=== PATIENT | female | born 1945 | race Caucasian/White ===

== ENCOUNTER → 2016-12-23 | Outpatient (CLI) | payer MEDICARE, OTHER ==
[2016-12-23 09:32] LABS: ABSOLUTE EOSINOPHILS # (AUTO) 0.2 10^3/uL (0.0-0.6); ABSOLUTE LYMPHOCYTES (AUTO) 1.3 10^3/uL (0.5-4.7); ABSOLUTE MONOCYTES (AUTO) 0.6 10^3/uL (0.1-1.4); ABSOLUTE NEUT (AUTO) 5.6 10^3/uL (1.7-8.2); BASOPHILS % (AUTO) 0.6 % (0-2); EOSINOPHILS % (AUTO) 2.5 % (0-6); HEMATOCRIT 39.9 % (36.0-47.0); HEMOGLOBIN 12.8 g/dL (12.0-15.5); HGB HCT DIFFERENCE -1.5; LYMPHOCYTES % (AUTO) 16.8 % (13-45); MEAN CORPUSCULAR HEMOGLOBIN 30.4 pg (27.0-33.4); MEAN CORPUSCULAR HGB CONC 32.1 g/dL (32.0-36.0); MEAN CORPUSCULAR VOLUME 95 fl (80-97); MONOCYTES % (AUTO) 7.1 % (3-13); RED BLOOD COUNT 4.21 10^6/uL (3.72-5.28); RED CELL DISTRIBUTION WIDTH 14.6 % (11.5-14.0); WHITE BLOOD COUNT 7.7 10^3/uL (4.0-10.5)
[2016-12-23 09:57] LABS: ALANINE AMINOTRANSFERASE 32 U/L (9-52); ALBUMIN 3.8 g/dL (3.5-5.0); ALKALINE PHOSPHATASE 81 U/L (38-126); ANION GAP 10 (5-19); ASPARTATE AMINO TRANSFERASE 22 U/L (14-36); BILIRUBIN,DIRECT 0.3 mg/dL (0.0-0.4); BILIRUBIN,TOTAL 0.4 mg/dL (0.2-1.3); BLOOD UREA NITROGEN 24 mg/dL (7-20); CALCIUM 9.6 mg/dL (8.4-10.2); CARBON DIOXIDE 27 mmol/L (22-30); CHLORIDE 107 mmol/L (98-107); CHOLESTEROL 202.25 mg/dL (0-200); CREATININE RESULT 0.79 mg/dL (0.52-1.25); Direct HDL 86 mg/dL (>40); GLUCOSE 82 mg/dL (75-110); POTASSIUM 4.6 mmol/L (3.6-5.0); SODIUM 144.3 mmol/L (137-145); TOTAL PROTEIN 6.7 g/dL (6.3-8.2); TRIGLYCERIDES 70 mg/dL (<150)
[2016-12-23 10:08] LABS: DIRECT LDL 79 mg/dL (<100)
== END ==
LOC: OD 08:32
PROVIDERS: ATTEND Family Medicine Geriatric Medicine
DX: I10 Essential (primary) hypertension (principal); E78.5 Hyperlipidemia, unspecified; M81.0 Age-related osteoporosis without current pathological fracture; Z79.899 Other long term (current) drug therapy; E78.00 Pure hypercholesterolemia, unspecified; K21.9 Gastro-esophageal reflux disease without esophagitis; G25.81 Restless legs syndrome
CPT/HCPCS: 36415; 80053; 80061; 84443; 85025

== ENCOUNTER → 2017-04-13 | Outpatient (CLI) | payer MEDICARE, OTHER ==
[2017-04-13 11:03] LABS: CHOLESTEROL 202.87 mg/dL (0-200); Direct HDL 87 mg/dL (>40); TRIGLYCERIDES 91 mg/dL (<150)
[2017-04-13 11:13] LABS: DIRECT LDL 91 mg/dL (<100)
== END ==
LOC: OD 09:55
PROVIDERS: ATTEND Family Medicine Geriatric Medicine
DX: E78.5 Hyperlipidemia, unspecified (principal); Z79.899 Other long term (current) drug therapy
CPT/HCPCS: 36415; 80061

== ENCOUNTER → 2017-08-24 | Outpatient (CLI) | payer MEDICARE ==
[2017-08-24 10:29] LABS: ABSOLUTE EOSINOPHILS # (AUTO) 0.1 10^3/uL (0.0-0.6); ABSOLUTE LYMPHOCYTES (AUTO) 1.3 10^3/uL (0.5-4.7); ABSOLUTE MONOCYTES (AUTO) 0.5 10^3/uL (0.1-1.4); ABSOLUTE NEUT (AUTO) 3.5 10^3/uL (1.7-8.2); BASOPHILS % (AUTO) 0.8 % (0-2); EOSINOPHILS % (AUTO) 2.6 % (0-6); HEMATOCRIT 41.8 % (36.0-47.0); LYMPHOCYTES % (AUTO) 23.9 % (13-45); MEAN CORPUSCULAR HGB CONC 33.5 g/dL (32.0-36.0); MEAN CORPUSCULAR VOLUME 93 fl (80-97); MONOCYTES % (AUTO) 8.5 % (3-13); PLATELET COUNT 241 10^3/uL (150-450); RED BLOOD COUNT 4.52 10^6/uL (3.72-5.28); RED CELL DISTRIBUTION WIDTH 14.3 % (11.5-14.0); SEGMENTED NEUTROPHILS % (AUTO) 64.2 % (42-78); TOTAL CELLS COUNTED % (AUTO) 100 %; WHITE BLOOD COUNT 5.5 10^3/uL (4.0-10.5)
[2017-08-24 10:50] LABS: BLOOD UREA NITROGEN 18 mg/dL (7-20); CALCIUM 9.9 mg/dL (8.4-10.2); CARBON DIOXIDE 32 mmol/L (22-30); CHLORIDE 105 mmol/L (98-107); GLUCOSE 89 mg/dL (75-110); SODIUM 144.4 mmol/L (137-145)
[2017-08-24 10:51] LABS: ALANINE AMINOTRANSFERASE 28 U/L (9-52); ALBUMIN 4.4 g/dL (3.5-5.0); ALKALINE PHOSPHATASE 60 U/L (38-126); ANION GAP 7 (5-19); ASPARTATE AMINO TRANSFERASE 24 U/L (14-36); BILIRUBIN,DIRECT 0.2 mg/dL (0.0-0.4); BILIRUBIN,TOTAL 0.3 mg/dL (0.2-1.3); CHOLESTEROL 211.31 mg/dL (0-200); TOTAL PROTEIN 6.9 g/dL (6.3-8.2); TRIGLYCERIDES 77 mg/dL (<150)
[2017-08-24 11:07] LABS: DIRECT LDL 97 mg/dL (<100)
== END ==
LOC: OD 09:35
PROVIDERS: ATTEND Family Medicine Geriatric Medicine
DX: E78.5 Hyperlipidemia, unspecified (principal); I10 Essential (primary) hypertension; M19.90 Unspecified osteoarthritis, unspecified site; Z79.899 Other long term (current) drug therapy
CPT/HCPCS: 36415; 80053; 80061; 85025

== ENCOUNTER → 2017-12-08 | Outpatient (CLI) | payer MEDICARE ==
[2017-12-08 13:47] LABS: ANION GAP 12 (5-19); BLOOD UREA NITROGEN 27 mg/dL (7-20); CARBON DIOXIDE 32 mmol/L (22-30); CHLORIDE 99 mmol/L (98-107); GLUCOSE 91 mg/dL (75-110); POTASSIUM 5.3 mmol/L (3.6-5.0); SODIUM 142.5 mmol/L (137-145)
== END ==
LOC: OD 11:44
PROVIDERS: ATTEND Family Medicine Geriatric Medicine
DX: I10 Essential (primary) hypertension (principal)
CPT/HCPCS: 36415; 80048

== ENCOUNTER → 2017-12-14 | Outpatient (CLI) | payer MEDICARE | LOC: OD 08:17 | PROVIDERS: ATTEND Family Medicine Geriatric Medicine | DX: E87.6 Hypokalemia (principal) | CPT/HCPCS: 36415; 84132 ==

== ENCOUNTER → 2017-12-25 | Outpatient (CLI) | payer MEDICARE ==
[2017-12-25 09:35] LABS: ALANINE AMINOTRANSFERASE 33 U/L (9-52); ASPARTATE AMINO TRANSFERASE 22 U/L (14-36); CHOLESTEROL 142.66 mg/dL (0-200); TRIGLYCERIDES 49 mg/dL (<150)
[2017-12-25 10:01] LABS: DIRECT LDL 52 mg/dL (<100)
== END ==
LOC: OD 08:39
PROVIDERS: ATTEND Family Medicine Geriatric Medicine
DX: E78.5 Hyperlipidemia, unspecified (principal); Z79.899 Other long term (current) drug therapy
CPT/HCPCS: 36415; 80061; 84450; 84460

== ENCOUNTER → 2018-03-30 | Outpatient (CLI) | payer MEDICARE ==
[2018-03-30 09:50] LABS: ANION GAP 7 (5-19); BLOOD UREA NITROGEN 14 mg/dL (7-20); CARBON DIOXIDE 31 mmol/L (22-30); CHLORIDE 102 mmol/L (98-107); CHOLESTEROL 158.65 mg/dL (0-200); GLUCOSE 92 mg/dL (75-110); POTASSIUM 4.6 mmol/L (3.6-5.0); SODIUM 140.4 mmol/L (137-145); TRIGLYCERIDES 67 mg/dL (<150)
[2018-03-30 10:02] LABS: DIRECT LDL 50 mg/dL (<100)
== END ==
LOC: OD 08:36
PROVIDERS: ATTEND Internal Medicine
DX: E78.5 Hyperlipidemia, unspecified (principal); N19 Unspecified kidney failure
CPT/HCPCS: 36415; 80048; 80061

== ENCOUNTER 2018-06-11 02:56 | Inpatient (IN) | payer OTHER, MEDICARE ==
[2018-06-11] MEDS ORDERED: ACETAMINOPHEN 325 MG TABLET PO ONE (03:48)
--- NOTE | 2018-06-11 04:21 | RADIOLOGY REPORT (SQ) ---
EXAM DESCRIPTION: XR CHEST 1 VIEW COMPLETED DATE/TME: 06/11/2018 03:50 CLINICAL HISTORY: 72 years, Female, fever, cough COMPARISON: 10/20/2016 chest x-ray NUMBER OF VIEWS: 1 TECHNIQUE: Upright portable chest LIMITATIONS: None. FINDINGS: Heart size is normal. Osteopenia. Old right rib fractures. Scarring in the right lung base. Lungs are otherwise clear. No pneumothorax IMPRESSION: No acute cardiopulmonary process 2010 [employer]- All Rights Reserved
[2018-06-11 04:48] LABS: HEMATOCRIT 37.8 % (36.0-47.0); HEMOGLOBIN 12.8 g/dL (12.0-15.5); MEAN CORPUSCULAR HEMOGLOBIN 31.4 pg (27.0-33.4); MEAN CORPUSCULAR HGB CONC 33.9 g/dL (32.0-36.0); MEAN CORPUSCULAR VOLUME 93 fl (80-97); PLATELET COUNT 184 10^3/uL (150-450); RED BLOOD COUNT 4.08 10^6/uL (3.72-5.28); RED CELL DISTRIBUTION WIDTH 14.2 % (11.5-14.0); WHITE BLOOD COUNT 9.7 10^3/uL (4.0-10.5)
[2018-06-11 04:58] LABS: ALANINE AMINOTRANSFERASE 31 U/L (9-52); ALBUMIN 3.8 g/dL (3.5-5.0); ALKALINE PHOSPHATASE 81 U/L (38-126); ANION GAP 10 (5-19); ASPARTATE AMINO TRANSFERASE 40 U/L (14-36); BILIRUBIN,DIRECT 0.4 mg/dL (0.0-0.4); BILIRUBIN,TOTAL 0.6 mg/dL (0.2-1.3); BLOOD UREA NITROGEN 28 mg/dL (7-20); CALCIUM 9.4 mg/dL (8.4-10.2); CARBON DIOXIDE 27 mmol/L (22-30); CHLORIDE 105 mmol/L (98-107); CREATINE KINASE 123 U/L (30-135); GLUCOSE 99 mg/dL (75-110); POTASSIUM 3.9 mmol/L (3.6-5.0); SODIUM 142.3 mmol/L (137-145); TOTAL PROTEIN 6.3 g/dL (6.3-8.2)
[2018-06-11 05:09] LABS: CREATINE KINASE MB 1.15 ng/mL (<4.55)
[2018-06-11 05:12] LABS: TROPONIN I < 0.012 ng/mL
[2018-06-11 05:14] LABS: A TYPE INFLUENZA AG NEGATIVE (NEGATIVE); B INFLUENZA AG NEGATIVE (NEGATIVE)
[2018-06-11 05:15] LABS: ABSOLUTE LYMPHOCYTES# (MANUAL) 0.5 10^3/uL (0.5-4.7); ABSOLUTE MONOCYTES # (MANUAL) 0.3 10^3/uL (0.1-1.4); ABSOLUTE NEUTROPHILS# (MANUAL) 8.8 10^3/uL (1.7-8.2); BASOPHILS % (MANUAL) 0 % (0-2); EOSINOPHILS % (MANUAL) 1 % (0-6); LYMPHOCYTES % (MANUAL) 5 % (13-45); MONOCYTES % (MANUAL) 3 % (3-13); SEGMENTED NEUTROPHILS % (MAN) 91 % (42-78); TOTAL CELLS COUNTED 100
[2018-06-11 05:16] LABS: PLATELET COMMENT ADEQUATE; RBC MORPHOLOGY COMMENT NORMO-CYTIC/CHROMIC
[2018-06-11] MEDS ORDERED: IBUPROFEN 600 MG TABLET PO ONE (05:47)
[2018-06-11] MEDS ORDERED: NORMAL SALINE 1000 ML 1,000 ML IV ONE (06:15)
--- NOTE | 2018-06-11 06:59 | EKG REPORT ---
SEVERITY:- NORMAL ECG - SINUS RHYTHM : Confirmed by: Javan Pizarro 11-Jun-2018 06:58:42
[2018-06-11 07:07] LABS: APPEARANCE,URINE SLIGHTLY-CLOUDY; BILIRUBIN,URINE NEGATIVE (NEGATIVE); COLOR,URINE YELLOW; GLUCOSE, URINE NEGATIVE (NEGATIVE); KETONES,URINE NEGATIVE (NEGATIVE); LEUKOCYTE ESTERASE,URINE MODERATE (NEGATIVE); NITRITE,URINE POSITIVE (NEGATIVE); PROTEIN,URINE 30 mg/dL (NEGATIVE); UROBILINOGEN,URINE NEGATIVE mg/dL (<2.0)
[2018-06-11] MEDS ORDERED: CEFTRIAXONE INJ 1000 MG VIAL IV ONE (07:15)
--- NOTE | 2018-06-11 07:15 | ER Document Report ---
ED General - General Chief Complaint: Headache Stated Complaint: BODY ACHES Time Seen by Provider: 06/11/18 03:17 Mode of Arrival: Ambulatory Information source: Patient Notes: Patient is a 72-year-old female who presents to the emergency department with chief complaint of headache, fever and chills. Patient reports that her symptoms started at midnight, just 4 hours prior to arrival. TRAVEL OUTSIDE OF THE [place] IN LAST 30 DAYS: No - Related Data Allergies/Adverse Reactions: No Known Allergies Allergy (Verified 10/20/16 08:35) Past Medical History - Social History Smoking Status: Never Smoker Chew tobacco use (# tins/day): No Frequency of alcohol use: None Drug Abuse: None Family History: Reviewed & Not Pertinent Patient has suicidal ideation: No Patient has homicidal ideation: No - Past Medical History Cardiac Medical History: Reports: Hx Hypercholesterolemia, Hx Hypertension - MEDS Denies: Hx Coronary Artery Disease, Hx Heart Attack Pulmonary Medical History: Denies: Hx Asthma, Hx Bronchitis, Hx COPD, Hx Pneumonia, Hx Tuberculosis Neurological Medical History: Denies: Hx Cerebrovascular Accident, Hx Seizures Renal/ Medical History: Denies: Hx Peritoneal Dialysis GI Medical History: Denies: Hx Hepatitis, Hx Hiatal Hernia, Hx Ulcer Musculoskeletal Medical History: Reports Hx Arthritis Psychiatric Medical History: Reports: Hx Depression Infectious Medical History: Denies: Hx Hepatitis Past Surgical History: Reports: Hx Genitourinary Surgery - bladder tack, Hx Hysterectomy, Hx Orthopedic Surgery - left wrist surgery, Hx Tonsillectomy, Hx Urinary Tract Surgery - bladder sling. Denies: Hx Mastectomy, Hx Open Heart Surgery, Hx Pacemaker - Immunizations Hx Diphtheria, Pertussis, Tetanus Vaccination: No Hx Pneumococcal Vaccination: 07/24/07 Physical Exam - Vital signs Vitals: Temp Pulse Resp BP Pulse Ox 101.3 F H 95 18 149/80 H 96 06/11/18 03:05 06/11/18 03:05 06/11/18 03:05 06/11/18 03:05 06/11/18 03:05 - Notes Notes: PHYSICAL EXAMINATION: GENERAL: Well-appearing, well-nourished and in no acute distress. HEAD: Atraumatic, normocephalic. EYES: Pupils equal round and reactive to light, extraocular movements intact, conjunctiva are normal. ENT: Nares patent, oropharynx clear without exudates. Moist mucous membranes. NECK: Normal range of motion, supple without lymphadenopathy LUNGS: Breath sounds clear to auscultation bilaterally and equal. No wheezes rales or rhonchi. HEART: Regular rate and rhythm without murmurs ABDOMEN: Soft, nontender, nondistended abdomen. No guarding, no rebound. No masses appreciated. Female : No CVA tenderness Musculoskeletal: Normal range of motion, no pitting or edema. No cyanosis. NEUROLOGICAL: Cranial nerves grossly intact. Normal speech, normal gait. Normal sensory, motor exams PSYCH: Normal mood, normal affect. SKIN: Warm, Dry, normal turgor, no rashes or lesions noted. Course - Re-evaluation Re-evalutation: CBC and CMP are unremarkable. Initial lactate 1.1. Repeat lactate 0.7. Blood cultures were obtained and sent to lab. Patient has been normotensive and without tachycardia or hypoxia. Urinalysis with positive nitrates and moderate leukocyte esterase. Will give patient 1 g of Rocephin IV. Patient was initially febrile, fever has now resolved. Patient has had some episodes of hypotension. Her daughter states she has had this in the past. 06/11/18 08:42 Patient accepted by hospitalist. He would like her placed as an observation status on [facility]. - Vital Signs Vital signs: Temp Pulse Resp BP Pulse Ox 98.4 F 95 17 99/57 L 95 06/11/18 07:36 06/11/18 03:05 06/11/18 08:01 06/11/18 08:00 06/11/18 08:01 - Laboratory Result Diagrams: 06/11/18 04:40 06/11/18 04:25 Laboratory results interpreted by me: 06/11/18 06/11/18 06/11/18 03:18 04:25 04:40 RDW 14.2 H Seg Neuts % (Manual) 91 H Lymphocytes % (Manual) 5 L Abs Neuts (Manual) 8.8 H BUN 28 H Est GFR (Non-Af Amer) 52 L AST 40 H Urine Protein 30 H Urine Blood SMALL H Urine Nitrite POSITIVE H Ur Leukocyte Esterase MODERATE H Discharge - Discharge Clinical Impression: Urinary tract infection Qualifiers: Urinary tract infection type: site unspecified Hematuria presence: with hematuria Qualified Code(s): N39.0 - Urinary tract infection, site not specified Fever Qualifiers: Fever type: unspecified Qualified Code(s): R50.9 - Fever, unspecified Condition: Stable Disposition: HOME, SELF-CARE Prescriptions: Cephalexin [Cephalexin 500 MG Tablet] 1 tab PO QID #28 tablet Referrals: PRITESH MULLINS MD [Primary Care Provider] - Follow up as needed
[2018-06-11] MEDS ORDERED: CLONAZEPAM 0.5 MG PO PRN (13:12)
[2018-06-11] MEDS ORDERED: (PENDING PHARMACY ID) (Alendronate Sodium [Fosamax 70 Mg Tablet] 70 MG) PO SCH (13:15)
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
[2018-06-11] MEDS ORDERED: CLONAZEPAM 1 MG TABLET PO PRN (13:45)
--- NOTE | 2018-06-11 14:05 | RADIOLOGY REPORT (SQ) ---
EXAM DESCRIPTION: CT CERVICAL SPINE WITHOUT COMPLETED DATE/TIME: 06/11/2018 1:55 pm REASON FOR STUDY: neck pain COMPARISON: None. TECHNIQUE: Axial images acquired through the cervical spine without intravenous contrast. Images re viewed with lung, soft tissue and bone windows. Reconstructed coronal and sagittal MPR images review ed. Images stored on PACS. All CT scanners at this facility use dose modulation, iterative reconstruction, and/or weight based d osing when appropriate to reduce radiation dose to as low as reasonably achievable (ALARA). [facility]: Dose Right [facility]: CareDose [facility]: Dose Right [facility]: Teradose 4D [facility]: [employer] RADIATION DOSE: CT Rad equipment meets quality standard of care and radiation dose reduction techniq ues were employed. CTDIvol: 14.4 mGy. DLP: 300 mGy-cm. mGy. LIMITATIONS: None. FINDINGS: ALIGNMENT: Anatomic. MINERALIZATION: Normal. VERTEBRAL BODIES: No fractures or dislocation. DISCS: There is disc narrowing at C6-7 with marginal osteophytes. FACETS, LATERAL MASSES, POSTERIOR ELEMENTS: No fractures. No dislocation. No acute findings. HARDWARE: None in the spine. VISUALIZED RIBS: No fractures. LUNG APICES AND SOFT TISSUES: No significant or acute findings. OTHER: No other significant finding. IMPRESSION: Degenerative disc disease and spondylosis. No acute findings. TECHNICAL DOCUMENTATION: JOB ID: [id number] Quality ID # [id number]: Final reports with documentation of one or more dose reduction techniques (e.g., Au tomated exposure control, adjustment of the mA and/or kV according to patient size, use of iterative reconstruction technique) 2010 [employer]- All Rights Reserved Reading location - IP/workstation name: [email or web address]
--- NOTE | 2018-06-11 14:07 | RADIOLOGY REPORT (SQ) ---
EXAM DESCRIPTION: CT HEAD WITHOUT COMPLETED DATE/TIME: 06/11/2018 1:55 pm REASON FOR STUDY: headache COMPARISON: None. TECHNIQUE: Axial images acquired through the brain without intravenous contrast. Images reviewed wi th bone, brain and subdural windows. Additional sagittal and coronal reconstructions were generated. Images stored on PACS. All CT scanners at this facility use dose modulation, iterative reconstruction, and/or weight based d osing when appropriate to reduce radiation dose to as low as reasonably achievable (ALARA). [facility]: Dose Right [facility]: CareDose [facility]: Dose Right [facility]: Teradose 4D [facility]: [employer] RADIATION DOSE: CT Rad equipment meets quality standard of care and radiation dose reduction techniq ues were employed. CTDIvol: 48.5 mGy. DLP: 855 mGy-cm. mGy. LIMITATIONS: None. FINDINGS: VENTRICLES: Normal size and contour. CEREBRUM: No masses. No hemorrhage. No midline shift. No evidence for acute infarction. Few scatte red areas of low density in the white matter most likely chronic small vessel ischemic changes. CEREBELLUM: No masses. No hemorrhage. No alteration of density. No evidence for acute infarction. EXTRAAXIAL SPACES: No fluid collections. No masses. ORBITS AND GLOBE: No intra- or extraconal masses. Normal contour of globe without masses. CALVARIUM: No fracture. PARANASAL SINUSES: No fluid or mucosal thickening. SOFT TISSUES: No mass or hematoma. OTHER: No other significant finding. IMPRESSION: MILD CHRONIC MICROVASCULAR ISCHEMIA. NO ACUTE IMAGING FINDINGS IN THE BRAIN. EVIDENCE OF ACUTE STROKE: NO. COMMENT: Quality ID # [id number]: Final reports with documentation of one or more dose reduction techniques (e.g., Automated exposure control, adjustment of the mA and/or kV according to patient size, use of iterative reconstruction technique) TECHNICAL DOCUMENTATION: JOB ID: [id number] [employer] All Rights Reserved Reading location - IP/workstation name: [email or web address]
[2018-06-11] MEDS: ENOXAPARIN SODIUM INJ 40 MG/0.4 ML DISP.SYRIN SUBCUT SCH (14:51)
[2018-06-11] MEDS: RINGERS SOLUTION,LACTATED 1,000 ML IV PRN (14:58)
[2018-06-11] MEDS: ACETAMINOPHEN 325 MG TABLET PO PRN (14:59)
[2018-06-11] MEDS: GABAPENTIN 300 MG CAPSULE PO SCH ×3 (15:00→21:18)
--- NOTE | 2018-06-11 15:28 | RADIOLOGY REPORT (SQ) ---
EXAM DESCRIPTION: U/S RETROPERITON LTD COMPLETED DATE/TIME: 06/11/2018 2:12 pm REASON FOR STUDY: pyelonephritis COMPARISON: None. TECHNIQUE: Dynamic and static grayscale images acquired of the kidneys and bladder and recorded on P ACS. Additional selected color Doppler and spectral images recorded. LIMITATIONS: None. FINDINGS: RIGHT KIDNEY: Normal size, 8.5 cm. Normal echogenicity. No solid or suspicious masses . No hydronephrosis. No calcifications. LEFT KIDNEY: Normal size, 9.1 cm. Normal echogenicity. No solid or suspicious masses. No hydro nephrosis. No calcifications. BLADDER: No masses. Ureteral jets are not seen. OTHER FINDINGS: No other significant finding. IMPRESSION: NORMAL RENAL AND BLADDER ULTRASOUND. TECHNICAL DOCUMENTATION: JOB ID: [id number] [employer]- All Rights Reserved Reading location - IP/workstation name: [email or web address]
[2018-06-11] MEDS ORDERED: (PENDING PHARMACY ID) (Omega-3 Fatty Acids [Fish Oil] 300 MG) PO SCH (18:00)
[2018-06-11] MEDS: PRAMIPEXOLE DI-HCL 0.25 MG TABLET PO SCH (21:19)
[2018-06-12 05:14] LABS: HEMATOCRIT 31.9 % (36.0-47.0); MEAN CORPUSCULAR HGB CONC 34.3 g/dL (32.0-36.0); MEAN CORPUSCULAR VOLUME 93 fl (80-97); PLATELET COUNT 148 10^3/uL (150-450); RED BLOOD COUNT 3.42 10^6/uL (3.72-5.28); RED CELL DISTRIBUTION WIDTH 14.6 % (11.5-14.0); WHITE BLOOD COUNT 11.6 10^3/uL (4.0-10.5)
[2018-06-12 05:35] LABS: ANION GAP 9 (5-19); BLOOD UREA NITROGEN 21 mg/dL (7-20); CALCIUM 8.2 mg/dL (8.4-10.2); CARBON DIOXIDE 24 mmol/L (22-30); CHLORIDE 109 mmol/L (98-107); GLUCOSE 92 mg/dL (75-110); POTASSIUM 3.8 mmol/L (3.6-5.0); SODIUM 142.1 mmol/L (137-145)
[2018-06-12] MEDS: RINGERS SOLUTION,LACTATED 1,000 ML IV PRN ×2 (06:05→20:43)
[2018-06-12] MEDS ORDERED: CEFTRIAXONE 1 GM/D5W RTU 1 GM/50 ML RTUPB IV SCH (10:00)
[2018-06-12] MEDS ORDERED: (PENDING PHARMACY ID) (Estradiol [Estrace] 0.5 MG) PO SCH (10:00)
[2018-06-12] MEDS: ENOXAPARIN SODIUM INJ 40 MG/0.4 ML DISP.SYRIN SUBCUT SCH (10:26)
[2018-06-12] MEDS: CEFTRIAXONE SODIUM 1,000 MG in DEXTROSE 5%-WATER 50 ML IV SCH (10:26)
[2018-06-12] MEDS: ASPIRIN 81 MG TABLET, ENT COATED PO SCH (10:27)
[2018-06-12] MEDS: OMEGA-3 ACID ETHYL ESTERS 1 GM CAPSULE PO SCH ×2 (10:27→17:42)
[2018-06-12] MEDS: GABAPENTIN 300 MG CAPSULE PO SCH ×4 (10:27→23:02)
[2018-06-12] MEDS: EZETIMIBE 10 MG TABLET PO SCH (10:27)
[2018-06-12] MEDS ORDERED: METHOCARBAMOL 500 MG TABLET PO PRN (10:35)
[2018-06-12] MEDS ORDERED: POLYETHYLENE GLYCOL 3350 POWDER 17 GM/1 PACKET PO ONE (12:00)
[2018-06-12] MEDS ORDERED: DOCUSATE SODIUM 100 MG CAPSULE PO ONE (12:00)
[2018-06-12] MEDS ORDERED: ONDANSETRON HCL INJ/PF 4 MG/2 ML SDV IV PRN (15:58)
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
[2018-06-12] MEDS: ACETAMINOPHEN 325 MG TABLET PO PRN (16:15)
[2018-06-12] MEDS ORDERED: ATORVASTATIN CALCIUM 20 MG TABLET PO SCH (17:00)
[2018-06-12] MEDS: PRAMIPEXOLE DI-HCL 0.25 MG TABLET PO SCH (23:02)
[2018-06-13] MEDS: HYDRALAZINE HCL 10 MG TABLET PO SCH ×2 (01:38→09:41)
[2018-06-13] MEDS ORDERED: HYDRALAZINE HCL 10 MG TABLET PO SCH ×2 (06:00→09:50)
[2018-06-13 06:10] LABS: HEMATOCRIT 33.1 % (36.0-47.0); HEMOGLOBIN 11.1 g/dL (12.0-15.5); MEAN CORPUSCULAR HEMOGLOBIN 31.3 pg (27.0-33.4); MEAN CORPUSCULAR HGB CONC 33.6 g/dL (32.0-36.0); MEAN CORPUSCULAR VOLUME 93 fl (80-97); PLATELET COUNT 168 10^3/uL (150-450); RED BLOOD COUNT 3.56 10^6/uL (3.72-5.28); RED CELL DISTRIBUTION WIDTH 14.5 % (11.5-14.0); WHITE BLOOD COUNT 7.8 10^3/uL (4.0-10.5)
[2018-06-13 06:27] LABS: ANION GAP 8 (5-19); BLOOD UREA NITROGEN 17 mg/dL (7-20); CALCIUM 8.9 mg/dL (8.4-10.2); CARBON DIOXIDE 27 mmol/L (22-30); CHLORIDE 107 mmol/L (98-107); GLUCOSE 98 mg/dL (75-110); POTASSIUM 4.2 mmol/L (3.6-5.0); SODIUM 142.2 mmol/L (137-145)
[2018-06-13] MEDS: OMEGA-3 ACID ETHYL ESTERS 1 GM CAPSULE PO SCH (09:41)
[2018-06-13] MEDS: GABAPENTIN 300 MG CAPSULE PO SCH ×2 (09:41→14:08)
[2018-06-13] MEDS: ASPIRIN 81 MG TABLET, ENT COATED PO SCH (09:41)
[2018-06-13] MEDS: CEFTRIAXONE SODIUM 1,000 MG in DEXTROSE 5%-WATER 50 ML IV SCH (09:42)
[2018-06-13] MEDS: ENOXAPARIN SODIUM INJ 40 MG/0.4 ML DISP.SYRIN SUBCUT SCH (09:42)
[2018-06-13] MEDS: EZETIMIBE 10 MG TABLET PO SCH (09:42)
[2018-06-13] MEDS ORDERED: POLYETHYLENE GLYCOL 3350 POWDER 17 GM/1 PACKET PO SCH (10:00)
[2018-06-13] MEDS ORDERED: DOCUSATE SODIUM 100 MG CAPSULE PO SCH (10:00)
[2018-06-13] MEDS ORDERED: LISINOPRIL 10 MG TABLET PO SCH (10:00)
[2018-06-13] MEDS ORDERED: METOPROLOL SUCCINATE 25 MG TAB.SR.24H PO SCH (10:00)
[2018-06-13] MEDS: ACETAMINOPHEN 325 MG TABLET PO PRN (13:03)
[2018-06-13 14:17] VITALS: BP 89/48
[2018-06-13] MEDS ORDERED: HYDRALAZINE HCL 25 MG TABLET PO SCH (18:00)
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
== END 2018-06-13 14:50 | disposition home or self-care (01) | DRG 690 ==
LOC: ER 02:56 → EH 09:42 → 3W 12:23 → OBSVTOIN 06-12 15:53
PROVIDERS: ADMIT Hospitalist; ATTEND Hospitalist
DX: N10 Acute pyelonephritis (principal); I95.9 Hypotension, unspecified; E78.5 Hyperlipidemia, unspecified; B96.20 Unspecified Escherichia coli [E. coli] as the cause of diseases classified elsewhere; B96.1 Klebsiella pneumoniae [K. pneumoniae] as the cause of diseases classified elsewhere; I10 Essential (primary) hypertension; M19.90 Unspecified osteoarthritis, unspecified site; R51 Headache; F32.9 Major depressive disorder, single episode, unspecified; K59.09 Other constipation; Z90.710 Acquired absence of both cervix and uterus; Z79.899 Other long term (current) drug therapy
CPT/HCPCS: 36415; 70450; 71045; 72125; 76775; 80048; 80053; 81001; 82550; 82553; 83605; 84484; 85025; 85027; 87040; 87086; 87088; 87186; 87804; 93005; 93010; 96361; 96365; 99285; G0378; J0696; J1650; J3490; J7030; J7120

== ENCOUNTER → 2018-06-20 | Outpatient (CLI) | payer MEDICARE ==
[2018-06-20 10:35] LABS: ABSOLUTE EOSINOPHILS # (AUTO) 0.2 10^3/uL (0.0-0.6); ABSOLUTE LYMPHOCYTES (AUTO) 1.2 10^3/uL (0.5-4.7); ABSOLUTE MONOCYTES (AUTO) 0.5 10^3/uL (0.1-1.4); ABSOLUTE NEUT (AUTO) 3.2 10^3/uL (1.7-8.2); BASOPHILS % (AUTO) 0.8 % (0-2); EOSINOPHILS % (AUTO) 3.1 % (0-6); HEMATOCRIT 35.2 % (36.0-47.0); LYMPHOCYTES % (AUTO) 23.6 % (13-45); MEAN CORPUSCULAR HEMOGLOBIN 31.5 pg (27.0-33.4); MEAN CORPUSCULAR VOLUME 93 fl (80-97); MONOCYTES % (AUTO) 9.7 % (3-13); PLATELET COUNT 394 10^3/uL (150-450); RED CELL DISTRIBUTION WIDTH 14.3 % (11.5-14.0); SEGMENTED NEUTROPHILS % (AUTO) 62.8 % (42-78); TOTAL CELLS COUNTED % (AUTO) 100 %; WHITE BLOOD COUNT 5.2 10^3/uL (4.0-10.5)
[2018-06-20 10:58] LABS: ALANINE AMINOTRANSFERASE 102 U/L (9-52); ALBUMIN 3.9 g/dL (3.5-5.0); ALKALINE PHOSPHATASE 150 U/L (38-126); ANION GAP 9 (5-19); ASPARTATE AMINO TRANSFERASE 37 U/L (14-36); BILIRUBIN,DIRECT 0.2 mg/dL (0.0-0.4); BILIRUBIN,TOTAL 0.4 mg/dL (0.2-1.3); BLOOD UREA NITROGEN 22 mg/dL (7-20); CALCIUM 9.7 mg/dL (8.4-10.2); CARBON DIOXIDE 30 mmol/L (22-30); CHLORIDE 104 mmol/L (98-107); CHOLESTEROL 157.01 mg/dL (0-200); GLUCOSE 91 mg/dL (75-110); POTASSIUM 5.2 mmol/L (3.6-5.0); SODIUM 142.9 mmol/L (137-145); TOTAL PROTEIN 6.7 g/dL (6.3-8.2); TRIGLYCERIDES 75 mg/dL (<150)
[2018-06-20 11:08] LABS: DIRECT LDL 78 mg/dL (<100)
== END ==
LOC: OD 09:42
PROVIDERS: ATTEND Family Medicine Geriatric Medicine
DX: I10 Essential (primary) hypertension (principal); E78.5 Hyperlipidemia, unspecified; I25.10 Atherosclerotic heart disease of native coronary artery without angina pectoris; Z79.899 Other long term (current) drug therapy
CPT/HCPCS: 36415; 80053; 80061; 85025

== ENCOUNTER → 2018-07-13 | Outpatient (CLI) | payer MEDICARE ==
--- NOTE | 2018-07-13 08:30 | RADIOLOGY REPORT (SQ) ---
EXAM DESCRIPTION: U/S RETROPERITON (RENAL/AORTA) COMPLETED DATE/TIME: 07/13/2018 8:04 am REASON FOR STUDY: PYELONEPHRITIS (N10) N10 ACUTE PYELONEPHRITIS COMPARISON: Abdominal US 06/11/2018 CTA chest 10/08/2013 TECHNIQUE: Dynamic and static grayscale images acquired of the kidneys and bladder and recorded on P ACS. Additional selected color Doppler and spectral images recorded. LIMITATIONS: None. FINDINGS: RIGHT KIDNEY: 9 cm in length, with diffuse cortical thinning and mild increased echogenic ity from medical renal disease. No solid or suspicious masses. No hydronephrosis. No calcifications. LEFT KIDNEY: 9.4 cm in length, with diffuse cortical thinning and mild increased echogenicity from m edical renal disease. Normal echogenicity. No solid or suspicious masses. No hydronephrosis. No calci fications. BLADDER: No masses. OTHER FINDINGS: No other significant finding. IMPRESSION: No hydronephrosis. Bilateral renal increased cortical echogenicity and cortical thinnin g from medical renal disease TECHNICAL DOCUMENTATION: JOB ID: [id number] [employer]- All Rights Reserved Reading location - IP/workstation name: [email or web address]
== END ==
LOC: RAD 07:41
PROVIDERS: ATTEND Family Medicine Geriatric Medicine
DX: N10 Acute pyelonephritis (principal)
CPT/HCPCS: 76770

== ENCOUNTER → 2018-07-23 | Outpatient (CLI) | payer MEDICARE ==
--- NOTE | 2018-07-23 10:53 | RADIOLOGY REPORT (SQ) ---
EXAM DESCRIPTION: CAROTID DOPPLER COMPLETED DATE/TIME: 07/23/2018 9:41 am REASON FOR STUDY: CAD I25.9 CHRONIC ISCHEMIC HEART DISEASE, UNSPECIFIED COMPARISON: None. TECHNIQUE: Grayscale ultrasound, Doppler velocity and spectra, and color Doppler images acquired of the extra-cranial carotid and vertebral arteries. Images stored on PACS. LIMITATIONS: None. FINDINGS: RIGHT CAROTID CCA Velocities: Within normal limits. ICA Velocities Peak systolic 1.35 m/s. End diastolic 0.48 m/s. Proximal ICA/CCA peak systolic ratio 1.93. Mild focal plaque in the proximal internal carotid artery. LEFT CAROTID CCA Velocities: Within normal limits. ICA Velocities Peak systolic 1.28 m/s. End diastolic 0.47 m/s. Proximal ICA/CCA peak systolic ratio 1.39. Mild shadowing plaque in the proximal internal carotid artery. VERTEBRAL ARTERIES: Antegrade flow. Normal waveforms. SUBCLAVIAN ARTERIES: No finding. OTHER: No other significant finding. IMPRESSION: BILATERAL PLAQUE. MILDLY ELEVATED VELOCITIES IN THE LOWER 50- 69% STENOSIS RANGE. COMMENT: Quality ID #195: Velocity criteria are extrapolated from the diameter data as defined by t he Society of Radiologists in Ultrasound Consensus Conference. Radiology 2003: 229; 340-346. TECHNICAL DOCUMENTATION: JOB ID: [id number] [employer]- All Rights Reserved Reading location - IP/workstation name: [facility]
== END ==
LOC: SP 08:39
PROVIDERS: ATTEND Family Medicine Geriatric Medicine
DX: I25.10 Atherosclerotic heart disease of native coronary artery without angina pectoris (principal)
CPT/HCPCS: 93880

== ENCOUNTER → 2018-08-20 | Outpatient (CLI) | payer MEDICARE ==
[2018-08-20 09:45] LABS: ABSOLUTE EOSINOPHILS # (AUTO) 0.1 10^3/uL (0.0-0.6); ABSOLUTE LYMPHOCYTES (AUTO) 1.3 10^3/uL (0.5-4.7); ABSOLUTE MONOCYTES (AUTO) 0.5 10^3/uL (0.1-1.4); ABSOLUTE NEUT (AUTO) 2.5 10^3/uL (1.7-8.2); BASOPHILS % (AUTO) 0.9 % (0-2); EOSINOPHILS % (AUTO) 3.3 % (0-6); HEMATOCRIT 39.7 % (36.0-47.0); HEMOGLOBIN 13.1 g/dL (12.0-15.5); LYMPHOCYTES % (AUTO) 29.1 % (13-45); MEAN CORPUSCULAR HEMOGLOBIN 30.5 pg (27.0-33.4); MEAN CORPUSCULAR HGB CONC 32.9 g/dL (32.0-36.0); MEAN CORPUSCULAR VOLUME 93 fl (80-97); MONOCYTES % (AUTO) 10.3 % (3-13); PLATELET COUNT 247 10^3/uL (150-450); RED BLOOD COUNT 4.28 10^6/uL (3.72-5.28); SEGMENTED NEUTROPHILS % (AUTO) 56.4 % (42-78); TOTAL CELLS COUNTED % (AUTO) 100 %; WHITE BLOOD COUNT 4.4 10^3/uL (4.0-10.5)
[2018-08-20 10:12] LABS: ALANINE AMINOTRANSFERASE 39 U/L (9-52); ALKALINE PHOSPHATASE 61 U/L (38-126); ASPARTATE AMINO TRANSFERASE 30 U/L (14-36); BILIRUBIN,DIRECT 0.2 mg/dL (0.0-0.4); BILIRUBIN,TOTAL 0.3 mg/dL (0.2-1.3); BLOOD UREA NITROGEN 22 mg/dL (7-20); CALCIUM 9.5 mg/dL (8.4-10.2); CHLORIDE 108 mmol/L (98-107); CHOLESTEROL 146.39 mg/dL (0-200); GLUCOSE 90 mg/dL (75-110); TOTAL PROTEIN 6.2 g/dL (6.3-8.2); TRIGLYCERIDES 52 mg/dL (<150)
[2018-08-20 10:25] LABS: DIRECT LDL 62 mg/dL (<100)
[2018-08-20 10:33] LABS: CARBON DIOXIDE 31 mmol/L (22-30)
[2018-08-20 10:37] LABS: ANION GAP 3 (5-19)
== END ==
LOC: OD 08:44
PROVIDERS: ATTEND Family Medicine Geriatric Medicine
DX: I25.9 Chronic ischemic heart disease, unspecified (principal); E78.5 Hyperlipidemia, unspecified; N39.0 Urinary tract infection, site not specified; Z79.899 Other long term (current) drug therapy
CPT/HCPCS: 36415; 80053; 80061; 85025

== ENCOUNTER → 2018-09-03 | Outpatient (CLI) | payer MEDICARE ==
[2018-09-03 12:39] LABS: ANION GAP 8 (5-19); BLOOD UREA NITROGEN 26 mg/dL (7-20); CALCIUM 9.4 mg/dL (8.4-10.2); CARBON DIOXIDE 29 mmol/L (22-30); CHLORIDE 105 mmol/L (98-107); GLUCOSE 113 mg/dL (75-110); POTASSIUM 4.7 mmol/L (3.6-5.0); SODIUM 142.2 mmol/L (137-145)
--- NOTE | 2018-09-03 12:39 | RADIOLOGY REPORT (SQ) ---
EXAM DESCRIPTION: SACRUM AND COCCYX COMPLETED DATE/TIME: 09/03/2018 12:08 pm REASON FOR STUDY: LB PAIN N18.3 CHRONIC KIDNEY DISEASE, STAGE 3 (MODERATE) R31.9 HEMATURIA, UNSPEC IFIED M54.5 LOW BACK PAIN COMPARISON: None. NUMBER OF VIEWS: Three views. TECHNIQUE: AP, lateral, and tilt views of the sacrum and coccyx. LIMITATIONS: None. FINDINGS: MINERALIZATION: Normal. BONES: No acute fracture or dislocation. Degenerative changes at the distal right sacroiliac joint a nd symphysis pubis. SOFT TISSUES: No soft tissue swelling. No foreign body. OTHER: No other significant finding. IMPRESSION: 1. No acute osseous findings. TECHNICAL DOCUMENTATION: JOB ID: [id number] [employer]- All Rights Reserved Reading location - IP/workstation name: [email or web address]
--- NOTE | 2018-09-03 12:45 | RADIOLOGY REPORT (SQ) ---
EXAM DESCRIPTION: LUMBAR SPINE COMPLETE COMPLETED DATE/TIME: 09/03/2018 12:08 pm REASON FOR STUDY: LB PAIN N18.3 CHRONIC KIDNEY DISEASE, STAGE 3 (MODERATE) R31.9 HEMATURIA, UNSPEC IFIED M54.5 LOW BACK PAIN COMPARISON: None. NUMBER OF VIEWS: Five views including obliques. TECHNIQUE: AP, lateral, oblique, and sacral radiographic images acquired of the lumbar spine. LIMITATIONS: None. FINDINGS: MINERALIZATION: Normal. SEGMENTATION: Normal. No transitional anatomy. ALIGNMENT: Normal. VERTEBRAE: Maintained height. No fracture or worrisome bone lesion. DISCS: Multilevel disc space narrowing. No significant osteophytes or end plate irregularity. Mild degenerative changes T8-T9, and T9-T10 levels. POSTERIOR ELEMENTS: Mild facet arthrosis lower lumbar spine. Pedicles are intact. No pars defect o r posterior arch defects. HARDWARE: None in the spine. PARASPINAL SOFT TISSUES: Normal. PELVIS: Intact as visualized. No fractures or worrisome bone lesions. SI joints intact. OTHER: Atherosclerotic changes involving the abdominal aorta. IMPRESSION: 1. Degenerative mild changes as above. 2. No acute osseous findings. TECHNICAL DOCUMENTATION: JOB ID: [id number] [employer]- All Rights Reserved Reading location - IP/workstation name: [email or web address]
== END ==
LOC: OD 11:29
PROVIDERS: ATTEND Family Medicine Geriatric Medicine
DX: M54.5 Low back pain (principal); N18.9 Chronic kidney disease, unspecified; R31.9 Hematuria, unspecified; Z79.899 Other long term (current) drug therapy; M47.896 Other spondylosis, lumbar region; M47.898 Other spondylosis, sacral and sacrococcygeal region
CPT/HCPCS: 36415; 72110; 72220; 80048; 82306; 87086

== ENCOUNTER → 2018-12-04 | Outpatient (CLI) | payer MEDICARE ==
[2018-12-04 10:09] LABS: ALANINE AMINOTRANSFERASE 29 U/L (9-52); ANION GAP 10 (5-19); BLOOD UREA NITROGEN 33 mg/dL (7-20); CALCIUM 9.5 mg/dL (8.4-10.2); CARBON DIOXIDE 28 mmol/L (22-30); CHLORIDE 106 mmol/L (98-107); CHOLESTEROL 136.46 mg/dL (0-200); GLUCOSE 91 mg/dL (75-110); POTASSIUM 5.2 mmol/L (3.6-5.0); SODIUM 143.5 mmol/L (137-145); TRIGLYCERIDES 57 mg/dL (<150)
[2018-12-04 10:20] LABS: DIRECT LDL 61 mg/dL (<100)
== END ==
LOC: OD 08:32
PROVIDERS: ATTEND Family Medicine Geriatric Medicine
DX: R73.9 Hyperglycemia, unspecified (principal); I10 Essential (primary) hypertension; E78.5 Hyperlipidemia, unspecified; Z79.899 Other long term (current) drug therapy
CPT/HCPCS: 36415; 80048; 80061; 84460

== ENCOUNTER → 2019-01-21 | Outpatient (CLI) | payer MEDICARE ==
[2019-01-21 10:48] LABS: ANION GAP 6 (5-19); BLOOD UREA NITROGEN 21 mg/dL (7-20); CALCIUM 9.6 mg/dL (8.4-10.2); CARBON DIOXIDE 28 mmol/L (22-30); CHLORIDE 108 mmol/L (98-107); GLUCOSE 97 mg/dL (75-110); POTASSIUM 4.8 mmol/L (3.6-5.0); SODIUM 141.7 mmol/L (137-145)
--- NOTE | 2019-01-21 12:49 | RADIOLOGY REPORT (SQ) ---
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 NUMBER OF VIEWS: Two views. TECHNIQUE: AP and lateral radiographic images acquired of the left ankle. LIMITATIONS: None. FINDINGS: MINERALIZATION: Normal. BONES: No acute fracture or dislocation. No worrisome bone lesions. JOINTS: No effusions. SOFT TISSUES: No soft tissue swelling. No foreign body. OTHER: No other significant finding. IMPRESSION: NEGATIVE STUDY OF THE LEFT ANKLE. NO RADIOGRAPHIC EVIDENCE OF ACUTE INJURY. TECHNICAL DOCUMENTATION: JOB ID: [id number] [employer]- All Rights Reserved Reading location - IP/workstation name: [email or web address]
--- NOTE | 2019-01-21 12:50 | RADIOLOGY REPORT (SQ) ---
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 NUMBER OF VIEWS: Two views. TECHNIQUE: AP pelvis and additional frog-leg view of the left hip. LIMITATIONS: None. FINDINGS: MINERALIZATION: Normal. LEFT HIP: No fracture or dislocation. No worrisome bone lesions. RIGHT HIP: No fracture or dislocation. No worrisome bone lesions. PUBIS AND ISCHIUM: No fracture. PELVIS: No fracture. SACRUM: No fracture or dislocation. No worrisome bone lesions. LOWER LUMBAR SPINE: No fracture or dislocation. No worrisome bone lesions. No significant disc disea se. SOFT TISSUES: No findings. OTHER: No other significant finding. IMPRESSION: NEGATIVE STUDY OF THE LEFT HIP AND PELVIS. NO RADIOGRAPHIC EVIDENCE OF ACUTE INJURY. TECHNICAL DOCUMENTATION: JOB ID: [id number] [employer]- All Rights Reserved Reading location - IP/workstation name: [email or web address]
--- NOTE | 2019-01-22 09:32 | XCELERA REPORT ---
[address] [place] [facility] [id number] Lower Extremity Venous Evaluation Procedure: Color flow and duplex imaging of the veins of the left lower extremity as well as the right Common Femoral vein. Right Sided Venous Evaluation The right common femoral vein is fully compressible. Spontaneous and phasic flow is present in the right common femoral vein. Left Sided Venous Evaluation Normal vessel filling wall to wall, compression and augmentation as well as Colour flow down to the infrageniculate veins. Interpretation Summary No duplex evidence of DVT or obstruction in the left lower extremity nor in the right Common Femoral vein. Name: ABHI SMITH Age: 73 yrs Gender: Female : 1945 Patient Status: Outpatient Patient Location: OD Study Date: 01/21/2019 01:12 PM Reason For Study: LLE PAIN Ordering Physician: VINCE MULLINS Performed By: Gerda Jaquez : VINCE MULLINS > Chang Silva
== END ==
LOC: OD 09:28
PROVIDERS: ATTEND Family Medicine Geriatric Medicine
DX: M79.605 Pain in left leg (principal); M25.552 Pain in left hip; N18.3 Chronic kidney disease, stage 3 (moderate); E78.5 Hyperlipidemia, unspecified; Z79.899 Other long term (current) drug therapy
CPT/HCPCS: 36415; 80048; 93971

== ENCOUNTER → 2019-02-26 | Outpatient (CLI) | payer MEDICARE ==
[2019-02-26 09:29] LABS: ALKALINE PHOSPHATASE 58 U/L (38-126); ANION GAP 6 (5-19); ASPARTATE AMINO TRANSFERASE 29 U/L (14-36); BILIRUBIN,DIRECT 0.2 mg/dL (0.0-0.4); BILIRUBIN,TOTAL 0.4 mg/dL (0.2-1.3); BLOOD UREA NITROGEN 26 mg/dL (7-20); CALCIUM 9.7 mg/dL (8.4-10.2); CARBON DIOXIDE 30 mmol/L (22-30); CHLORIDE 103 mmol/L (98-107); CHOLESTEROL 151.69 mg/dL (0-200); GLUCOSE 88 mg/dL (75-110); POTASSIUM 5.1 mmol/L (3.6-5.0); TOTAL PROTEIN 6.5 g/dL (6.3-8.2); TRIGLYCERIDES 66 mg/dL (<150)
[2019-02-26 09:39] LABS: DIRECT LDL 66 mg/dL (<100)
== END ==
LOC: OD 08:03
PROVIDERS: ATTEND Family Medicine Geriatric Medicine
DX: E86.0 Dehydration (principal); I10 Essential (primary) hypertension; E78.5 Hyperlipidemia, unspecified; G25.81 Restless legs syndrome; Z79.899 Other long term (current) drug therapy; N39.0 Urinary tract infection, site not specified; R31.9 Hematuria, unspecified
CPT/HCPCS: 36415; 80053; 80061; 87086

== ENCOUNTER → 2019-04-01 | Outpatient (CLI) | payer MEDICARE | LOC: OD 12:57 | PROVIDERS: ATTEND Family Medicine Geriatric Medicine | DX: E87.6 Hypokalemia (principal) | CPT/HCPCS: 36415; 84132 ==

== ENCOUNTER → 2019-04-10 | Outpatient (CLI) | payer MEDICARE | LOC: OD 13:02 | PROVIDERS: ATTEND Family Medicine Geriatric Medicine | DX: E87.6 Hypokalemia (principal); N39.0 Urinary tract infection, site not specified | CPT/HCPCS: 36415; 84132; 87086 ==

== ENCOUNTER → 2019-06-24 | Outpatient (CLI) | payer MEDICARE ==
--- NOTE | 2019-06-24 12:43 | RADIOLOGY REPORT (SQ) ---
EXAM DESCRIPTION: LUMBAR SPINE COMPLETE COMPLETED DATE/TIME: 06/24/2019 11:44 am REASON FOR STUDY: LT HIP PAIN,LBP M25.559 PAIN IN UNSPECIFIED HIP M54.5 LOW BACK PAIN COMPARISON: None. NUMBER OF VIEWS: Five views including obliques. TECHNIQUE: AP, lateral, oblique, and sacral radiographic images acquired of the lumbar spine. LIMITATIONS: None. FINDINGS: MINERALIZATION: Normal. SEGMENTATION: Normal. No transitional anatomy. ALIGNMENT: There is mild anterolisthesis of L3 on L4. VERTEBRAE: Maintained height. No fracture or worrisome bone lesion. DISCS: There is mild disc narrowing at L3-4 and at L5-S1. POSTERIOR ELEMENTS: Hypertrophic facet changes from L3-S1. HARDWARE: None in the spine. PARASPINAL SOFT TISSUES: Normal. PELVIS: Intact as visualized. No fractures or worrisome bone lesions. SI joints intact. OTHER: No other significant finding. IMPRESSION: Mild anterolisthesis of L3 on L4. Mild degenerative disc disease and facet arthropathy. TECHNICAL DOCUMENTATION: JOB ID: [id number] [employer]- All Rights Reserved Reading location - IP/workstation name: [email or web address]
--- NOTE | 2019-06-24 12:43 | RADIOLOGY REPORT (SQ) ---
EXAM DESCRIPTION: SACRUM AND COCCYX COMPLETED DATE/TIME: 06/24/2019 11:44 am REASON FOR STUDY: LT HIP PAIN,LBP M25.559 PAIN IN UNSPECIFIED HIP M54.5 LOW BACK PAIN COMPARISON: 09/03/2018 NUMBER OF VIEWS: Three views. TECHNIQUE: AP, lateral, and tilt views of the sacrum and coccyx. LIMITATIONS: None. FINDINGS: MINERALIZATION: Normal. BONES: No acute fracture or dislocation. No worrisome bone lesions. SOFT TISSUES: No soft tissue swelling. No foreign body. OTHER: No other significant finding. IMPRESSION: NEGATIVE STUDY OF THE SACRUM AND COCCYX. TECHNICAL DOCUMENTATION: JOB ID: [id number] [employer]- All Rights Reserved Reading location - IP/workstation name: [email or web address]
--- NOTE | 2019-06-24 12:45 | RADIOLOGY REPORT (SQ) ---
EXAM DESCRIPTION: HIP LEFT AP/LATERAL COMPLETED DATE/TIME: 06/24/2019 11:44 am REASON FOR STUDY: LT HIP PAIN,LBP M25.559 PAIN IN UNSPECIFIED HIP M54.5 LOW BACK PAIN COMPARISON: 01/21/2019 NUMBER OF VIEWS: Two views. TECHNIQUE: AP pelvis and additional frog-leg view of the left hip. LIMITATIONS: None. FINDINGS: MINERALIZATION: Normal. LEFT HIP: No fracture or dislocation. No worrisome bone lesions. RIGHT HIP: No fracture or dislocation. No worrisome bone lesions. PUBIS AND ISCHIUM: No fracture. PELVIS: No fracture. SACRUM: No fracture or dislocation. No worrisome bone lesions. LOWER LUMBAR SPINE: No fracture or dislocation. No worrisome bone lesions. No significant disc disea se. SOFT TISSUES: No findings. OTHER: No other significant finding. IMPRESSION: NEGATIVE STUDY OF THE LEFT HIP AND PELVIS. NO RADIOGRAPHIC EVIDENCE OF ACUTE INJURY. TECHNICAL DOCUMENTATION: JOB ID: [id number] [employer]- All Rights Reserved Reading location - IP/workstation name: [email or web address]
== END ==
LOC: OD 11:05
PROVIDERS: ATTEND Family Medicine Geriatric Medicine
DX: M51.37 Other intervertebral disc degeneration, lumbosacral region (principal); M54.5 Low back pain; M25.552 Pain in left hip
CPT/HCPCS: 72110; 72220

== ENCOUNTER → 2019-07-03 | Outpatient (CLI) | payer MEDICARE ==
--- NOTE | 2019-07-03 13:38 | RADIOLOGY REPORT (SQ) ---
EXAM DESCRIPTION: MRI LT LOWER JOINT WITHOUT COMPLETED DATE/TIME: 07/03/2019 1:16 pm REASON FOR STUDY: M80.00XA AGE-REL OSTEOPOR W CURRENT PATH FRACTURE, UNSP SITE, INIT M80.00XA AGE-R EL OSTEOPOR W CURRENT PATH FRACTURE, UNSP SITE COMPARISON: None. TECHNIQUE: Lefthip images acquired and stored on PACS. Multiplanar images to include fat sensitive s equences as T1, fluid sensitive sequences as T2/STIR and gradient echo sequences. Large FOV fat and f luid sensitive sequences include pelvis and opposite hip. LIMITATIONS: Motion artifact. FINDINGS: BONE CORTEX AND MARROW: No generalized marrow replacement. No occult fracture. No worriso me bone lesions. TARGETED HIP: FEMORAL HEAD: No occult fracture. No osteophytes or subchondral cysts. Normal sphericity of femoral h ead/neck junction. No acetabular dysplasia. No evidence femoroacetabular impingement. No significant effusion. ACETABULUM: No acetabular dysplasia. No subchondral cysts. LABRUM: No acute findings. TROCHANTER: No trochanteric bursal effusion. No edema/fluid at the insertions of the gluteus medius and gluteus minimus. OPPOSITE HIP: Limited evaluation. No worrisome bone lesions. No significant effusion. PELVIS, LOWER LUMBAR SPINE, SACROILIAC JOINTS: PELVIS : No fracture. Minimal periarticular edema inferior right SI joint. L SPINE: See separate report of the same date. MUSCLES AND SOFT TISSUES: Adductors and piriformis normal. Abductors and greater trochanteric bursa n ormal without edema or fluid. Iliopsoas bursa without fluid. Hamstring attachments without edema or t ear. PELVIC SOFT TISSUES: No masses or adenopathy. SCIATIC NERVE: Identified, without masses or abnormal signal. OTHER: No other significant finding. IMPRESSION: No fracture or other acute abnormality. TECHNICAL DOCUMENTATION: JOB ID: [id number] [employer]- All Rights Reserved Reading location - IP/workstation name: [email or web address]
--- NOTE | 2019-07-03 13:56 | RADIOLOGY REPORT (SQ) ---
EXAM DESCRIPTION: MRI LUMBAR SPINE WITHOUT COMPLETED DATE/TIME: 07/03/2019 1:16 pm REASON FOR STUDY: AGE-REL OSTEOPOR W CURRENT PATH FRACTURE, UNSP SITE, INIT M80.00XA AGE-REL OSTEOP OR W CURRENT PATH FRACTURE, UNSP SITE COMPARISON: Lumbar spine plain films 06/24/2019, 09/03/2018 TECHNIQUE: Sagittal and Axial imaging includes T1, T2, STIR and gradient echo sequences. Coronal T2/ HASTE imaging. LIMITATIONS: None. FINDINGS: VISUALIZED UPPER ABDOMEN: Limited evaluation. No acute or suspicious findings suggested. SEGMENTATION: No transitional anatomy. The lowest well-developed disc space is labeled L5-S1. ALIGNMENT: Minimal grade 1 anterolisthesis of L3 over L4 VERTEBRAE: Intact. BONE MARROW: Normal. No marrow replacement or reactive changes. DISC SIGNAL: Diffuse decreased T2 weighted intervertebral disc signal. Mild disc space loss of heigh t at L3-4 POSTERIOR ELEMENTS: Generally intact. No pars defect evident. HARDWARE: None in the spine. CORD AND CONUS: Normal in size and signal intensity. Conus at the mid L1 level. SOFT TISSUES: No aortic aneurysm seen. No bulky retroperitoneal adenopathy or mass. No paraspinal mas s or fluid. T10-11: At the upper edge of the field of view. Mild bilateral facet hypertrophy. No central or fo raminal stenosis T11-12: Mild bilateral facet hypertrophy. No central or foraminal stenosis. T12-L1: Mild bilateral facet hypertrophy. No central or foraminal stenosis L1-L2: Mild bilateral facet hypertrophy. No central or foraminal stenosis L2-L3: Mild posterior disc bulging, mild bilateral facet and ligament hypertrophy. No central stenos is. No significant foraminal narrowing L3-L4: Grade 1 anterolisthesis of L3 over L4, broad diffuse posterior disc bulge bony spurring, bulky bilateral facet and ligament hypertrophy. [id number]-[id number] central canal stenosis with flattening o f the thecal sac into a triangle-shaped, and partial effacement of the CSF around the lumbar nerve ro ots, best shown on axial T2 image 18. Elsewhere at L3-4, there is mild to moderate bilateral foraminal narrowing without definite right exi t L3 nerve root impingement. On the left, there is a 5 x 7 mm perineural cyst versus synovial cyst p rotruding off the left facet joint, best shown on axial T2 image 16 and sagittal image 12. This caus es mild flattening of the left L3 nerve root in the neural foramen on sagittal image 12 and axial macho ge 16. L4-L5: Broad diffuse posterior disc bulging, bulky bilateral facet and ligament hypertrophy causes mi [id number] central canal narrowing with flattening of the thecal sac into a triangular shape, bes t shown on axial T2 image 24. There is mild bilateral inferior foraminal narrowing without exiting L 4 nerve root impingement L5-S1: Minimal posterior disc bulging, mild bilateral facet and ligament hypertrophy. No significant central or foraminal stenosis. SACRUM: Visualized upper sacrum intact. OTHER: No other significant findings. IMPRESSION: Central and foraminal stenosis most pronounced at L3-4. TECHNICAL DOCUMENTATION: JOB ID: [id number] [email or web address]- All Rights Reserved Reading location - IP/workstation name: [email or web address]
== END ==
LOC: RAD 11:38
PROVIDERS: ATTEND Orthopaedic Surgery
DX: M80.00XA Age-related osteoporosis with current pathological fracture, unspecified site, initial encounter for fracture (principal); M51.87 Other intervertebral disc disorders, lumbosacral region
CPT/HCPCS: 72148

== ENCOUNTER → 2019-09-11 | Outpatient (CLI) | payer MEDICARE ==
[2019-09-11 09:37] LABS: ABSOLUTE EOSINOPHILS # (AUTO) 0.2 10^3/uL (0.0-0.6); ABSOLUTE LYMPHOCYTES (AUTO) 1.2 10^3/uL (0.5-4.7); ABSOLUTE MONOCYTES (AUTO) 0.7 10^3/uL (0.1-1.4); ABSOLUTE NEUT (AUTO) 5.6 10^3/uL (1.7-8.2); BASOPHILS % (AUTO) 0.4 % (0-2); EOSINOPHILS % (AUTO) 2.4 % (0-6); HEMATOCRIT 38.2 % (36.0-47.0); HEMOGLOBIN 12.9 g/dL (12.0-15.5); LYMPHOCYTES % (AUTO) 16.1 % (13-45); MEAN CORPUSCULAR HEMOGLOBIN 31.7 pg (27.0-33.4); MEAN CORPUSCULAR HGB CONC 33.8 g/dL (32.0-36.0); MEAN CORPUSCULAR VOLUME 94 fl (80-97); MONOCYTES % (AUTO) 8.6 % (3-13); PLATELET COUNT 228 10^3/uL (150-450); RED BLOOD COUNT 4.07 10^6/uL (3.72-5.28); RED CELL DISTRIBUTION WIDTH 15.1 % (11.5-14.0); SEGMENTED NEUTROPHILS % (AUTO) 72.5 % (42-78); TOTAL CELLS COUNTED % (AUTO) 100 %; WHITE BLOOD COUNT 7.7 10^3/uL (4.0-10.5)
[2019-09-11 09:54] LABS: ALBUMIN 3.8 g/dL (3.5-5.0); ALKALINE PHOSPHATASE 67 U/L (38-126); BILIRUBIN,TOTAL 0.3 mg/dL (0.2-1.3); BLOOD UREA NITROGEN 23 mg/dL (7-20); CARBON DIOXIDE 30 mmol/L (22-30); CHOLESTEROL 148.43 mg/dL (0-200); GLUCOSE 84 mg/dL (75-110); TOTAL PROTEIN 6.5 g/dL (6.3-8.2)
[2019-09-11 09:57] LABS: ANION GAP 5 (5-19); CHLORIDE 106 mmol/L (98-107)
[2019-09-11 09:59] LABS: ASPARTATE AMINO TRANSFERASE 29 U/L (14-36); CALCIUM 9.2 mg/dL (8.4-10.2); POTASSIUM 4.7 mmol/L (3.6-5.0); TRIGLYCERIDES 63 mg/dL (<150)
[2019-09-11 10:06] LABS: DIRECT LDL 61 mg/dL (<100)
== END ==
LOC: OD 08:47
PROVIDERS: ATTEND Family Medicine Geriatric Medicine
DX: I10 Essential (primary) hypertension (principal); E78.5 Hyperlipidemia, unspecified; Z79.899 Other long term (current) drug therapy
CPT/HCPCS: 36415; 80053; 80061; 85025

== ENCOUNTER 2019-12-10 18:59 | Emergency (ER) | payer MEDICARE, OTHER ==
--- NOTE | 2019-12-10 20:18 | ER Document Report ---
ED Extremity Problem, Lower - General Chief Complaint: Knee Injury Stated Complaint: FALL/LEFT KNEE PAIN Time Seen by Provider: 12/10/19 20:13 Primary Care Provider: [facility] [Provider Group] - Follow up as needed VINCE MULLINS MD [Primary Care Provider] - Follow up as needed Mode of Arrival: Wheelchair Information source: Patient Notes: 74-year-old female presented to ED for complaint of pain to her left knee. She states she fell about 3 PM today and has not had anything for the pain since then. She states it has been more more painful to try to get up and walk around. She is alert oriented respirations regular nonlabored speaking in full sentences. She states she is not able to walk on this foot. TRAVEL OUTSIDE OF THE [place] IN LAST 30 DAYS: No - HPI Patient complains to provider of: Injury, Pain, Swelling Location: Knee Occurred: This afternoon Where: Home Onset/Duration: Gradual Quality of pain: Sharp, Throbbing Severity: Moderate Pain Level: 5 Context: Fell Recent injury: Yes Associated symptoms: Unable to bear weight Exacerbated by: Movement, Walking Relieved by: Nothing - Related Data Allergies/Adverse Reactions: No Known Allergies Allergy (Verified 12/10/19 20:12) Past Medical History - Social History Smoking Status: Never Smoker Family History: Malignancy Patient has homicidal ideation: No - Past Medical History Cardiac Medical History: Reports: Hx Hypercholesterolemia, Hx Hypertension - MEDS Denies: Hx Coronary Artery Disease, Hx Heart Attack Pulmonary Medical History: Denies: Hx Asthma, Hx Bronchitis, Hx COPD, Hx Pneumonia, Hx Tuberculosis Neurological Medical History: Denies: Hx Cerebrovascular Accident, Hx Seizures Renal/ Medical History: Denies: Hx Peritoneal Dialysis GI Medical History: Denies: Hx Hepatitis, Hx Hiatal Hernia, Hx Ulcer Musculoskeletal Medical History: Reports Hx Arthritis Psychiatric Medical History: Reports: Hx Depression Infectious Medical History: Denies: Hx Hepatitis Past Surgical History: Reports: Hx Genitourinary Surgery - bladder tack, Hx Hysterectomy, Hx Orthopedic Surgery - left wrist surgery, Hx Tonsillectomy, Hx Urinary Tract Surgery - bladder sling. Denies: Hx Mastectomy, Hx Open Heart Surgery, Hx Pacemaker - Immunizations Hx Diphtheria, Pertussis, Tetanus Vaccination: No Hx Pneumococcal Vaccination: 07/24/07 Physical Exam - Vital signs Vitals: Temp Pulse Resp BP Pulse Ox 98.6 F 62 18 185/79 H 96 12/10/19 19:13 12/10/19 19:13 12/10/19 19:13 12/10/19 19:13 12/10/19 19:13 Interpretation: Normal - General General appearance: Appears well, Alert - HEENT Head: Normocephalic, Atraumatic Eyes: Normal Pupils: PERRL - Respiratory Respiratory status: No respiratory distress Chest status: Nontender Breath sounds: Normal Chest palpation: Normal - Cardiovascular Rhythm: Regular Heart sounds: Normal auscultation Murmur: No - Abdominal Inspection: Normal Distension: No distension Bowel sounds: Normal Tenderness: Nontender Organomegaly: No organomegaly - Back Back: Normal, Nontender - Extremities General upper extremity: Normal inspection, Nontender, Normal color, Normal ROM, Normal temperature General lower extremity: Normal temperature. No: Adonis's sign Knee: Tender, Ecchymosis, Joint effusion, Pain with ROM, Patellar tendon intact, Tender joint line, Unable to bear weight. No: Abrasion, Deformity, Dislocation, Drawer's test instability, Instability, Laceration, Laxity with valgus stress, Laxity with varus stress, Popliteal fossa tender - Neurological Neuro grossly intact: Yes Cognition: Normal Orientation: AAOx4 Henny Coma Scale Eye Opening: Spontaneous Stephenson Coma Scale Verbal: Oriented Henny Coma Scale Motor: Obeys Commands Stephenson Coma Scale Total: 15 Speech: Normal Motor strength normal: LUE, RUE, LLE, RLE Sensory: Normal - Psychological Associated symptoms: Normal affect, Normal mood - Skin Skin Temperature: Warm Skin Moisture: Dry Skin Color: Normal Course - Re-evaluation Re-evalutation: 12/10/19 21:16 Discussed x-ray with patient and report given to patient for follow-up with orthopedics in the morning. Patient was treated with a knee immobilizer. She states she could not walk with crutches and she has a walker at home. She will use her walker to get into the house and the [facility] Patient states she will follow-up tomorrow with orthopedics. She knows she is not to bear weight on this leg until she follows up with orthopedics and she is not to take the knee immobilizer off. - Vital Signs Vital signs: Temp Pulse Resp BP Pulse Ox 98.7 F 62 17 163/79 H 100 12/10/19 21:26 12/10/19 21:15 12/10/19 21:15 12/10/19 21:15 12/10/19 21:15 - Diagnostic Test Radiology reviewed: Image reviewed, Reports reviewed Procedures - Immobilization Left Knee Time completed: 21:17 Pre-Proc Neuro Vasc Exam: Normal Immobilizer type: Knee immobilizer, Other - Patient has walker at home states she cannot use crutches Performed by: PCT Post-Proc Neuro Vasc Exam: Normal Alignment checked and good: Yes Discharge - Discharge Clinical Impression: Avulsion fracture fibular head Condition: Stable Disposition: HOME, SELF-CARE Additional Instructions: You were seen today for a avulsion fracture of the fibular head. This is a avulsion fracture at the knee. KNEE IMMOBILIZING SPLINT: The knee immobilizing splint will protect the injury while healing begins. This type of splint does not allow the knee to bend at all. No running or sports will be possible. The stiffeners on the sides are attached with Velcro, so they can be easily moved to adjust for thigh and calf size. If you need help with these adjustments, come back. You will lose muscle strength in the thigh while using this splint. The d clarkor will advise you if it's safe to do isometric knee exercises while you use it. You stated you could not use crutches but you have a walker at home. Please use your walker and do not place any weight on this leg. Please call primary and orthopedics in the morning to schedule follow-up for this avulsion fracture. It is important you do not take the knee immobilizer of until you follow-up with orthopedics. ICE & ELEVATION: Apply ice packs frequently against the painful area. Many different schedules are recommended, such as "20 minutes on, 20 minutes off" or "one hour ice, two hours rest." If you need to work, you may need to go longer between ice treatments. You should plan to have the area ice packed AT LEAST one-fourth of the time. The ice should be applied over the wrap, tape, or splint, or over a layer of cloth -- not directly against the skin. Some ice bags have a built-in cloth and can be put directly on the skin. Your injured part should be elevated as much as possible over the next 48 hours. Try to keep the injury above the level of the heart. Avoid use of the injured area. Elevation and rest will decrease the swelling. USE OF [id number] IBUPROFEN: Ibuprofen (Advil, Nuprin, Medipren, Motrin IB) is a medication for fever and pain control. In addition, it has anti- inflammatory effects which may be beneficial, especially in the treatment of injuries. It's best to take ibuprofen with food. Persons with ulcer disease or allergy to aspirin should notify their physician of this before taking ibuprofen. Ibuprofen can be given every four to six hours, for a total of four doses daily. Age Pain or fever dose Antiinflammatory dose 6-8 yr 200 mg (1 tab) 200 mg (1 tab) 9-11 yr 200 mg (1 tab) 200-400 mg (1-2 tab) 11-14 yr 200-400 mg (1-2 tab) 400 mg (2 tab) 15-adult 400 mg (2 tab) 600 mg (3 tab) ORAL NARCOTIC MEDICATION: You have been given a Logan dispense pack for pain control. This medication is a narcotic. It's best taken with food, as nausea can result if taken on an empty stomach. Don't operate machinery or drive within six hours of taking this medication. Do not combine this medicine with alcohol, or with any medication which can cause sedation (such as cold tablets or sleeping pills) unless you get permission from the physician. Narcotics tend to cause constipation. If possible, drink plenty of fluids and eat a diet high in fiber and fruits. Please be aware that prescription narcotics also have the potential for abuse. People become addicted to these medications because of the general sense of wellbeing that they induce. This feeling along with a significant reduction in tension, anxiety, and aggression provides a stimulating seductive quality to these drugs. Once your pain is under control, we encourage you to discard your unused narcotics. FOLLOW-UP CARE: If you have been referred to a physician for follow-up care, call the physicians office for an appointment as you were instructed or within the next two days. If you experience worsening or a significant change in your symptoms, notify the physician immediately or return to the Emergency Department at any time for re-evaluation. Forms: Elevated Blood Pressure Referrals: VINCE MULLINS MD [Primary Care Provider] - Follow up as needed [facility] ([facility] [Provider Group] - Follow up as needed
[2019-12-10] MEDS ORDERED: HYDROCODONE/ACETAMINOPHEN 5-325 MG TABLET PO ONE (20:22)
--- NOTE | 2019-12-10 20:54 | RADIOLOGY REPORT (SQ) ---
EXAM DESCRIPTION: XR KNEE 4 OR MORE VIEWS COMPLETED DATE/TME: 12/10/2019 20:22 CLINICAL HISTORY: 74 years, Female, Fall pain COMPARISON: None. NUMBER OF VIEWS: 4 TECHNIQUE: Frontal, lateral, and oblique radiographs were obtained LIMITATIONS: None. FINDINGS: A curvilinear ossific density projects adjacent to the fibular head on the frontal projection. This is also corroborated on the oblique projection. Remaining visualized osseous structures are normal without additional abnormality identified. There is likely a small knee joint effusion. IMPRESSION: Curvilinear ossific density projecting adjacent to the fibular head could indicate a small avulsion fracture fragment. No additional osseous anomalies. Suspect small knee joint effusion. copyright 2010 [employer]- All Rights Reserved
[2019-12-10 21:17] VITALS: BP 163/79
[2019-12-10] MEDS ORDERED: HYDROCODONE/ACETAMINOPHEN 5-325 MG (6 TAB/ER DISP) PO PRN (21:21)
== END 2019-12-10 21:27 | disposition home or self-care (01) ==
LOC: ER 18:59
DX: S82.492A Other fracture of shaft of left fibula, initial encounter for closed fracture (principal); M25.562 Pain in left knee; M79.89 Other specified soft tissue disorders; W19.XXXA Unspecified fall, initial encounter; I10 Essential (primary) hypertension; Z79.899 Other long term (current) drug therapy
CPT/HCPCS: 99283; 73564; A9270 ×2

== ENCOUNTER → 2019-12-23 | Outpatient (CLI) | payer MEDICARE, OTHER ==
[2019-12-23 09:57] LABS: ANION GAP 5 (5-19); CARBON DIOXIDE 29 mmol/L (22-30); CHLORIDE 106 mmol/L (98-107)
[2019-12-23 10:04] LABS: BLOOD UREA NITROGEN 31 mg/dL (7-20); CALCIUM 9.5 mg/dL (8.4-10.2); GLUCOSE 94 mg/dL (75-110); POTASSIUM 4.7 mmol/L (3.6-5.0)
== END ==
LOC: OD 09:01
PROVIDERS: ATTEND Family Medicine Geriatric Medicine
DX: I10 Essential (primary) hypertension (principal); E86.0 Dehydration; Z79.899 Other long term (current) drug therapy
CPT/HCPCS: 36415; 80048

== ENCOUNTER → 2020-02-03 | Outpatient (CLI) | payer MEDICARE, OTHER ==
[2020-02-03 09:00] LABS: ABSOLUTE BASOPHILS # (AUTO) 0.1 10^3/uL (0.0-0.2); ABSOLUTE EOSINOPHILS # (AUTO) 0.2 10^3/uL (0.0-0.6); ABSOLUTE LYMPHOCYTES (AUTO) 1.3 10^3/uL (0.5-4.7); ABSOLUTE MONOCYTES (AUTO) 0.7 10^3/uL (0.1-1.4); ABSOLUTE NEUT (AUTO) 4.3 10^3/uL (1.7-8.2); BASOPHILS % (AUTO) 0.8 % (0-2); EOSINOPHILS % (AUTO) 2.4 % (0-6); HEMATOCRIT 40.7 % (36.0-47.0); HEMOGLOBIN 13.6 g/dL (12.0-15.5); MEAN CORPUSCULAR HEMOGLOBIN 31.2 pg (27.0-33.4); MEAN CORPUSCULAR HGB CONC 33.3 g/dL (32.0-36.0); MEAN CORPUSCULAR VOLUME 94 fl (80-97); MONOCYTES % (AUTO) 10.5 % (3-13); PLATELET COUNT 237 10^3/uL (150-450); RED BLOOD COUNT 4.34 10^6/uL (3.72-5.28); RED CELL DISTRIBUTION WIDTH 14.2 % (11.5-14.0); SEGMENTED NEUTROPHILS % (AUTO) 66.3 % (42-78); TOTAL CELLS COUNTED % (AUTO) 100 %; WHITE BLOOD COUNT 6.5 10^3/uL (4.0-10.5)
[2020-02-03 09:20] LABS: BLOOD UREA NITROGEN 24 mg/dL (7-20); CALCIUM 9.3 mg/dL (8.4-10.2); GLUCOSE 93 mg/dL (75-110); POTASSIUM 4.6 mmol/L (3.6-5.0)
[2020-02-03 09:21] LABS: ALBUMIN 3.9 g/dL (3.5-5.0); ALKALINE PHOSPHATASE 59 U/L (38-126); ASPARTATE AMINO TRANSFERASE 29 U/L (14-36); BILIRUBIN,TOTAL 0.3 mg/dL (0.2-1.3); TOTAL PROTEIN 6.5 g/dL (6.3-8.2); TRIGLYCERIDES 53 mg/dL (<150); URIC ACID 5.7 mg/dL (2.5-7.5)
[2020-02-03 09:25] LABS: CARBON DIOXIDE 30 mmol/L (22-30); CHLORIDE 106 mmol/L (98-107)
[2020-02-03 09:29] LABS: ANION GAP 4 (5-19)
[2020-02-03 09:31] LABS: DIRECT LDL 48 mg/dL (<100)
== END ==
LOC: OD 08:01
PROVIDERS: ATTEND Family Medicine Geriatric Medicine
DX: I10 Essential (primary) hypertension (principal); E78.5 Hyperlipidemia, unspecified; M79.645 Pain in left finger(s); Z79.899 Other long term (current) drug therapy
CPT/HCPCS: 36415; 80053; 80061; 84550; 85025

== ENCOUNTER 2020-03-26 18:00 | Emergency (ER) | payer MEDICARE, OTHER ==
[2020-03-26 18:10] VITALS: BP 192/120
[2020-03-26] MEDS ORDERED: HYDROCODONE/ACETAMINOPHEN 5-325 MG TABLET PO ONE (19:10)
--- NOTE | 2020-03-26 19:13 | ER Document Report ---
ED Medical Screen (RME) - General Chief Complaint: Fall Stated Complaint: FALL/BACK PAIN Time Seen by Provider: 03/26/20 19:01 Primary Care Provider: VINCE MULLINS MD [Primary Care Provider] - Follow up as needed Mode of Arrival: Wheelchair Information source: Patient Notes: 74-year-old female presented to ED for complaint of pain to both hips low back and left knee. She fell tripping over a blanket landing on her tailbone. She has severe pain to both hips coccyx sacrum and lumbar spine. She also has pain and swelling to the left knee. She is alert oriented respirations regular nonlabored speaking in full sentences. She states she is just in a lot of pain. I have greeted and performed a rapid initial assessment of this patient. A comprehensive ED assessment and evaluation of the patient, analysis of test results and completion of medical decision making process will be conducted by an additional ED providers. TRAVEL OUTSIDE OF THE [place] IN LAST 30 DAYS: No - Related Data Allergies/Adverse Reactions: No Known Allergies Allergy (Verified 12/10/19 20:12) Past Medical History - Social History Chew tobacco use (# tins/day): No Frequency of alcohol use: None Drug Abuse: None - Past Medical History Cardiac Medical History: Reports: Hx Hypercholesterolemia, Hx Hypertension - MEDS Denies: Hx Coronary Artery Disease, Hx Heart Attack Pulmonary Medical History: Denies: Hx Asthma, Hx Bronchitis, Hx COPD, Hx Pneumonia, Hx Tuberculosis Neurological Medical History: Denies: Hx Cerebrovascular Accident, Hx Seizures Renal/ Medical History: Denies: Hx Peritoneal Dialysis GI Medical History: Denies: Hx Hepatitis, Hx Hiatal Hernia, Hx Ulcer Musculoskeltal Medical History: Reports Hx Arthritis Psychiatric Medical History: Reports: Hx Depression Infectious Medical History: Denies: Hx Hepatitis Past Surgical History: Reports: Hx Genitourinary Surgery - bladder tack, Hx Hysterectomy, Hx Orthopedic Surgery - left wrist surgery, Hx Tonsillectomy, Hx Urinary Tract Surgery - bladder sling. Denies: Hx Mastectomy, Hx Open Heart Surgery, Hx Pacemaker - Immunizations Hx Diphtheria, Pertussis, Tetanus Vaccination: No Physical Exam - Vital signs Vitals: Temp Pulse Resp BP Pulse Ox 98.3 F 72 16 192/120 H 98 03/26/20 18:08 03/26/20 18:08 03/26/20 18:08 03/26/20 18:08 03/26/20 18:08 Course - Vital Signs Vital signs: Temp Pulse Resp BP Pulse Ox 98.3 F 72 16 192/120 H 98 03/26/20 18:08 03/26/20 18:08 03/26/20 18:08 03/26/20 18:08 03/26/20 18:08 Doctor's Discharge - Discharge Referrals: VINCE MULLINS MD [Primary Care Provider] - Follow up as needed
--- NOTE | 2020-03-26 20:16 | RADIOLOGY REPORT (SQ) ---
EXAM DESCRIPTION: X-ray, single view of the pelvis and single view of each hip. CLINICAL HISTORY: 74 years Female, Fall injury pain COMPARISON: Radiographs of the pelvis and left hip 06/24/2019 FINDINGS: Hips are appropriately positioned bilaterally. The visualized portion the sacrum and SI joints are unremarkable. Pelvic ring is intact. No acute fracture is seen. Right hip: Subtle axial joint space narrowing. No osteophyte formation. No fracture. Left hip: Subtle axial joint space narrowing. No osteophyte formation. No fracture. IMPRESSION: Subtle joint space narrowing of the hips. No fracture is seen in the hips or pelvis.
--- NOTE | 2020-03-26 20:20 | RADIOLOGY REPORT (SQ) ---
EXAM DESCRIPTION: X-ray, five views of the lumbar spine CLINICAL HISTORY: 74 years Female, Fall injury pain COMPARISON: Radiographs of the lumbar spine 06/24/2019 FINDINGS: Moderate stool is noted in the colon. Vascular calcifications. There is mild curvature of the lumbar spine convex left which is slightly more pronounced. On the lateral view there appears to be focal disruption of the midportion of the sacrum consistent with a sacral fracture. This involves the S3 vertebral body segment. This is not seen on the frontal views because of air and stool in the colon. SI joints appear intact. Pedicles are intact. Five nonrib-bearing lumbar vertebral bodies are seen. There is disc height narrowing at L3-4 with mild associated endplate spondylosis. The appearance is similar to the previous exam. Oblique views demonstrate degenerative facet arthropathy predominantly at L4-5 and L5-S1. IMPRESSION: Horizontal fracture of the body the sacrum seen on the lateral view of the lower lumbar spine. This was not present on the previous exam and appears to involve the S3 vertebral body segment. No acute fracture of the lumbar spine.
--- NOTE | 2020-03-26 20:21 | RADIOLOGY REPORT (SQ) ---
EXAM DESCRIPTION: XR KNEE 4 OR MORE VIEWS COMPLETED DATE/TME: 03/26/2020 19:11 CLINICAL HISTORY: 74 years Female Fall injury pain COMPARISON: 12/10/2019. TECHNIQUE: Left knee, 3 views FINDINGS: No acute fractures or dislocations are identified. No osseous destructive lesions. No joint effusion is noted. IMPRESSION: No acute fracture is identified.
[2020-03-27] MEDS ORDERED: FENTANYL CITRATE INJ/PF 100 MCG/2 ML AMPUL ONE (01:41)
[2020-03-27] MEDS ORDERED: KETOROLAC TROMETHAMINE INJ/PF 30 MG/1 ML SDV ONE (01:44)
[2020-03-27] MEDS ORDERED: FENTANYL CITRATE INJ/PF 250 MCG/5 ML AMPULE IM ONE (02:00)
[2020-03-27] MEDS ORDERED: KETOROLAC TROMETHAMINE INJ/PF 30 MG/1 ML SDV IM ONE (02:00)
== END 2020-03-27 01:30 | disposition home or self-care (01) ==
LOC: ER 18:00
DX: S32.10XA Unspecified fracture of sacrum, initial encounter for closed fracture (principal); S83.92XA Sprain of unspecified site of left knee, initial encounter; M54.9 Dorsalgia, unspecified; W01.0XXA Fall on same level from slipping, tripping and stumbling without subsequent striking against object, initial encounter; E78.00 Pure hypercholesterolemia, unspecified; I10 Essential (primary) hypertension; Z90.710 Acquired absence of both cervix and uterus
CPT/HCPCS: 99284; 96372; 73564; 72110; 73522; A9270

== ENCOUNTER → 2020-04-01 | Outpatient (CLI) | payer MEDICARE, OTHER ==
[2020-04-01 10:35] LABS: FOLATE > 20.00 ng/mL (>2.76)
== END ==
LOC: OD 08:03
PROVIDERS: ATTEND Family Medicine Geriatric Medicine
DX: E53.0 Riboflavin deficiency (principal)
CPT/HCPCS: 36415; 82607; 82746

== ENCOUNTER → 2020-04-17 | Outpatient (CLI) | payer MEDICARE, OTHER ==
--- NOTE | 2020-04-17 10:27 | WOMENS IMAGING REPORT ---
EXAM DESCRIPTION: BONE DENSITY HIP/SPINE IMAGES COMPLETED DATE/TIME: 04/17/2020 9:01 am REASON FOR STUDY: M81.0 AGE-RELATED OSTEOPOROSIS WITHOUT CURRENT PATHOLOGICAL FRACTURE M81.0 AGE-RE LATED OSTEOPOROSIS W/O CURRENT PATHOLOGICAL FRAC COMPARISON: 05/27/2016 TECHNIQUE: Dual-Energy X-ray Absorptiometry (DEXA) of the AP Spine and Hip. LIMITATIONS: None. FINDINGS: LUMBAR SPINE: The bone mineral density (BMD) measured from L1-L4 in the AP projection correlates with a T-score of -1.6, which is osteopenia as defined by the World Health Organization. BMD Change vs Baseline: 1.7% improvement. HIP: The bone mineral density (BMD) measured in the left hip correlates with a T-score of -2.3, which is o steopenia as defined by the World Health Organization. BMD Change vs Baseline: 8.9% improvement. 10 year Fracture Risk Assessment: Major Osteoporotic Fracture: Not available. Hip Fracture: Not available. IMPRESSION: 1. LUMBAR SPINE WHO CLASSIFICATION: OSTEOPENIA. 2. HIP WHO CLASSIFICATION: OSTEOPENIA. OVERALL ASSESSMENT: WHO CLASSIFICATION: OSTEOPENIA. COMMENT: The World Health Organization defines low BMD as follows: T-score: Normal: At or above -1.0 Osteopenia: Between -1.0 and -2.5 Osteoporosis: At or below -2.5 without fractures Established osteoporosis: At or below -2.5 with fractures In general, you may wish to consider: Diagnosis Treatment Follow-up DEXA Normal BMD Prevention 2-3 years Osteopenia Prevention/Therapy 1-2 years Osteoporosis Therapy Yearly TECHNICAL DOCUMENTATION: JOB ID: [id number] 2010 [employer]- All Rights Reserved Reading location - IP/workstation name: [email or web address]
== END ==
LOC: WI 08:42
PROVIDERS: ATTEND Family Medicine Geriatric Medicine
DX: M81.0 Age-related osteoporosis without current pathological fracture (principal)
CPT/HCPCS: 77080

== ENCOUNTER → 2020-06-08 | Outpatient (CLI) | payer MEDICARE, OTHER ==
[2020-06-08 09:19] LABS: ABSOLUTE EOSINOPHILS # (AUTO) 0.3 10^3/uL (0.0-0.6); ABSOLUTE LYMPHOCYTES (AUTO) 1.1 10^3/uL (0.5-4.7); ABSOLUTE MONOCYTES (AUTO) 0.6 10^3/uL (0.1-1.4); ABSOLUTE NEUT (AUTO) 3.3 10^3/uL (1.7-8.2); BASOPHILS % (AUTO) 0.8 % (0-2); EOSINOPHILS % (AUTO) 4.9 % (0-6); HEMATOCRIT 40.8 % (36.0-47.0); HEMOGLOBIN 13.7 g/dL (12.0-15.5); LYMPHOCYTES % (AUTO) 21.7 % (13-45); MEAN CORPUSCULAR HEMOGLOBIN 31.3 pg (27.0-33.4); MEAN CORPUSCULAR HGB CONC 33.5 g/dL (32.0-36.0); MEAN CORPUSCULAR VOLUME 93 fl (80-97); MONOCYTES % (AUTO) 10.6 % (3-13); PLATELET COUNT 232 10^3/uL (150-450); RED BLOOD COUNT 4.37 10^6/uL (3.72-5.28); RED CELL DISTRIBUTION WIDTH 14.2 % (11.5-14.0); TOTAL CELLS COUNTED % (AUTO) 100 %; WHITE BLOOD COUNT 5.3 10^3/uL (4.0-10.5)
[2020-06-08 09:48] LABS: ALBUMIN 4.3 g/dL (3.5-5.0); ALKALINE PHOSPHATASE 66 U/L (38-126); ANION GAP 8 (5-19); ASPARTATE AMINO TRANSFERASE 28 U/L (14-36); BILIRUBIN,TOTAL 0.2 mg/dL (0.2-1.3); BLOOD UREA NITROGEN 27 mg/dL (7-20); CALCIUM 9.8 mg/dL (8.4-10.2); CARBON DIOXIDE 29 mmol/L (22-30); CHLORIDE 104 mmol/L (98-107); GLUCOSE 94 mg/dL (75-110); POTASSIUM 4.6 mmol/L (3.6-5.0); TRIGLYCERIDES 60 mg/dL (<150)
[2020-06-08 09:59] LABS: DIRECT LDL 59 mg/dL (<100)
== END ==
LOC: OD 08:14
PROVIDERS: ATTEND Family Medicine Geriatric Medicine
DX: I10 Essential (primary) hypertension (principal); E78.5 Hyperlipidemia, unspecified; Z79.899 Other long term (current) drug therapy
CPT/HCPCS: 36415; 80053; 80061; 85025